=== PATIENT | male | born 1945 | race Caucasian/White ===

== ENCOUNTER 2019-09-16 09:26 | Outpatient (CLI) | payer MEDICARE, SELFPAY ==
[2019-09-16 10:18] LABS: Basophils Percent Auto 0.6 % (0.2-1.2); Eosinophils Absolute Auto 0.1 K/mm3 (0-0.3); Eosinophils Percent Auto 2.5 % (0-4.4); Hematocrit 40.6 % (42.0-52.0); Hemoglobin 13.6 g/dL (14.0-18.0); Immature Granulocyte Absolute 0.02 K/mm3 (0.00-0.031); Immature Granulocyte Percent A 0.4 % (0-0.5); Lymphocytes Absolute Auto 1.99 K/mm3 (0.9-3.2); Lymphocytes Percent Auto 38.2 % (18.3-44.2); Mean Corpuscular HGB Conc 33.5 g/dl (32-36); Mean Corpuscular Hemoglobin 31.6 pg (26-34); Mean Corpuscular Volume 94.4 fl (80-100); Mean Platelet Volume 9.7 fl (7.4-10.4); Monocytes Absolute Auto 0.3 K/mm3 (0.1-0.6); Monocytes Percent Auto 5.8 % (2.6-8.5); Neutrophils Absolute Auto 2.7 K/mm3 (1.3-6.7); Neutrophils Percent Auto 52.5 % (45.5-73.1); Platelet Count Result 180 k/mm3 (150-375); Red Cell Distribution Width 13.8 % (11.5-14.5); White Blood Count 5.2 K/mm3 (4.5-10.0)
[2019-09-16 10:26] LABS: Hemoglobin A1C 6.7 % (<5.7)
[2019-09-16 10:26] LABS: Add Urine Microscopic? YES; Appearance Urine Clear (Clear); Bacteria Urine Trace /hpf; Bilirubin Urine Negative (Negative); Blood Urine Negative (Negative); Color Urine Yellow (Yellow); Glucose Urine UA Negative (Negative); Ketones Urine Negative (Negative); Leukocyte Esterase Ur 1+ LEU/UL (NEGATIVE); Mucus Urine Rare /lpf; Nitrate Urine Negative (Negative); Protein Urine Negative (Negative); Specific Grav Ur 1.016 (1.001-1.035); Squamous Epithelial Cell Urine Occasional /hpf (Few); Urobilinogen Urine Negative mg/dL (<2.0)
[2019-09-16 10:41] LABS: Alanine Aminotransferase 19 U/L (4-50); Albumin Level 3.7 g/dL (3.5-5.1); Alkaline Phosphatase 60 U/L (38-126); Aspartate Amino Transferase 30 U/L (17-59); Bilirubin,Total 0.9 mg/dL (0.2-1.3); Blood Urea Nitrogen 14 mg/dL (9-20); Calcium 8.7 mg/dL (8.4-10.2); Carbon Dioxide 30 mmol/L (22-30); Chloride 99 mmol/L (98-107); Cholesterol 191 mg/dL (0-200); Estimated Glomerular Filt Rate > 60; Glucose 127 mg/dL (75-110); HDL Direct 35 mg/dL; Potassium 4.1 mmol/L (3.4-5.0); Sodium 137 mmol/L (137-145); Triglycerides 212 mg/dL (<150)
[2019-09-16 10:48] LABS: LDL Cholesterol Direct 126 mg/dL
[2019-09-16 10:53] LABS: Creatinine Urine 106.8 mg/dL
[2019-09-16 11:14] LABS: MALB Creatinine Ratio < 5.6 mg/g (0-30); Microalbumin Urine Random < 6.0 mg/L (0-16.7)
[2019-09-16 13:05] LABS: Free T4 Free Thyroxine 1.17 ng/mL (0.78-2.19); Vitamin D 25 Hydroxy 16.5 ng/mL
== END 2019-09-16 09:27 | disposition home or self-care (01) ==
PROVIDERS: PCP Family Medicine; Visit Provider Nurse Practitioner Family
DX: I50.42 Chronic combined systolic (congestive) and diastolic (congestive) heart failure (principal); E11.42 Type 2 diabetes mellitus with diabetic polyneuropathy; E78.2 Mixed hyperlipidemia; E55.9 Vitamin D deficiency, unspecified; R10.2 Pelvic and perineal pain
CPT/HCPCS: 36415; 80053; 80061; 81001; 82043; 82306; 83036; 84439; 84443; 84480; 85025; 87086; 87088

== ENCOUNTER 2019-12-25 11:37 | Outpatient (CLI) | payer MEDICARE, SELFPAY ==
--- NOTE | ~2019-12-25 | XR_ITS ---
XR thoracic spine 3V DATE: 12/25/2019 12:26 INDICATION: History of T12 fracture TECHNIQUE: AP, lateral, swimmer views COMPARISON: None FINDINGS: There is mild anterolisthesis at C3-4. There is minimal anterolisthesis at C4-5. Degenerative disc disease and uncovertebral joint spurring are noted in the cervical spine at C5-6, C 6-7. There is associated mild retrolisthesis at C5-6. There is diffuse idiopathic skeletal hyperostosis of the thoracic spine, particularly in the mid to l ower thoracic region. There is mild anterior wedging of T12 and L1, consistent with old mild anterior wedge compression fra cture deformities. Status post sternotomy/CABG. IMPRESSION: Extensive degenerative changes of the cervical spine Diffuse idiopathic skeletal hyperostosis of the thoracic spine Chronic mild anterior wedge compression fracture deformities of T12 and L1 Reviewed, dictated and finalized at location A.
--- NOTE | ~2019-12-25 | XR_ITS ---
XR lumbar spine 2-3V DATE: 12/25/2019 12:26 INDICATION: T12 fracture TECHNIQUE: AP, lateral, coned lateral lumbosacral views COMPARISON: None FINDINGS: Mild anterior wedge apparently chronic compression fracture deformities are present at T12- L1. There is diffuse idiopathic skeletal hyperostosis of the lower thoracic and upper lumbar spine. There is diffuse osteopenia. There is degenerative change at the apophyseal joints with associated grade 1 anterolisthesis at L4-5 . There is mild degenerative disc disease at the lumbar levels. There is moderately severe degenerative disease however L5-S1. The sacral iliac joints appear normal. There is extensive calcification of the abdominal aorta. IMPRESSION: Chronic mild anterior wedge compression fracture deformities of T12 and L1 Multilevel degenerative disc disease, most severe at L5-S1 Reviewed, dictated and finalized at location A.
== END 2019-12-25 11:38 | disposition home or self-care (01) ==
PROVIDERS: PCP Family Medicine; Visit Provider Family Medicine
DX: M54.5 Low back pain (principal); M51.37 Other intervertebral disc degeneration, lumbosacral region
CPT/HCPCS: 72072; 72100

== ENCOUNTER 2019-12-31 07:05 | Outpatient (CLI) | payer MEDICARE, SELFPAY ==
[2019-12-31 08:00] LABS: Blood Urea Nitrogen 9 mg/dL (9-20); Carbon Dioxide 33 mmol/L (22-30); Chloride 102 mmol/L (98-107); Estimated Glomerular Filt Rate > 60; Glucose 131 mg/dL (75-110); Potassium 4.3 mmol/L (3.4-5.0); Sodium 140 mmol/L (137-145)
== END 2019-12-31 07:06 | disposition home or self-care (01) ==
PROVIDERS: PCP Family Medicine; Visit Provider Internal Medicine Cardiovascular Disease
DX: I27.20 Pulmonary hypertension, unspecified (principal); E11.59 Type 2 diabetes mellitus with other circulatory complications; I10 Essential (primary) hypertension
CPT/HCPCS: 36415; 80048

== ENCOUNTER 2022-09-01 14:12 | Outpatient (CLI) | payer MEDICARE, SELFPAY ==
--- NOTE | ~2022-09-01 | MR_ITS ---
EXAMINATION: MR lumbar spine wo con DATE: 09/01/2022 15:39 INDICATION: Lumbar stenosis with neurogenic claudication TECHNIQUE: Magnetic resonance imaging (MRI) of the lumbar spine was performed without intravenous con trast. Sequences included sagittal T2-weighted FSE, sagittal T2-weighted FS FSE, sagittal T1-weighted FSE, and axial T2-weighted FSE. COMPARISON: Lumbar spine radiographs dated 12/25/2019 FINDINGS: Postoperative change of L4 laminectomy and left L5-S1 hemilaminotomy with residual edema and scattere d foci of susceptibility artifact in the soft tissues of the overlying postoperative bed. 1-2 mm retr olisthesis L1 on L2, L3 on L4 and L5 on S1. Chronic T12 and L1 compression fracture with 20% anterior vertebral body height loss. Large T1 and T2 hyperintense hemangioma at L1. Otherwise normal marrow s ignal. Moderate left-sided predominant disc height loss at L5-S1. Remaining disc heights are relative ly preserved. The conus medullaris terminates at L1. There is normal signal in the caudal spinal cord . Paravertebral soft tissues are unremarkable. The following disc levels are specifically discussed: T12-L1: The disc does not extend beyond the endplate margin. There is very left and moderate right fa cet joint osteoarthritis. There is no neural foraminal stenosis. There is no central canal stenosis. L1-L2: Disc is bulging. There is severe bilateral facet joint osteoarthritis. There is mild bilateral neural foraminal stenosis. There is mild central canal stenosis. L2-L3: Disc is mildly bulging. There is severe left and moderate to severe right facet joint osteoart hritis. There is mild right and mild to moderate left neural foraminal stenosis. There is mild centra l canal stenosis. L3-L4: Disc is bulging. There is moderate to severe bilateral facet joint osteoarthritis. There is mo derate bilateral neural foraminal stenosis. There is mild central canal stenosis. L4-L5: Disc is bulging. There is severe bilateral facet joint osteoarthritis. There is a small joint effusion on the left with fluid passing the medial capsule exerting mass effect upon the left posteri or margin of the thecal sac. 3 mm AP separation of the articular surfaces of the left facet joint sug gesting potential for up to 3 mm anterolisthesis at least at the left side of L4 on L5. There is mode rate bilateral neural foraminal stenosis. There is moderate central canal stenosis with narrowing of the left and right lateral recesses. L5-S1: Disc is bulging with annular fissure versus site of a prior partial discectomy at the left lat eral recess. There is moderate right and mild to moderate left facet joint osteoarthritis. There is m oderate left and mild to moderate right neural foraminal stenosis. There is mild left central canal s tenosis. IMPRESSION: 1. Postoperative change of prior L4 laminectomy and left L5 hemilaminotomy potentially with prior par tial L5-S1 discectomy. Correlate with surgical history. 2. Moderate lumbar spondylosis and chronic mild anterior wedging at T12 and L1. Reviewed, dictated and finalized at location A. HOUSE INSULATION WORKER IMPRESSION: 1. Postoperative change of prior L4 laminectomy and left L5 hemilaminotomy pote ntially with prior partial L5-S1 discectomy. Correlate with surgical history. 2. Moderate lumbar spondylosis and chronic mild anterior wedging at T12 and L1.
--- NOTE | ~2022-09-01 | XR_ITS ---
EXAMINATION: XR orbit foreign body DATE: 09/01/2022 15:05 INDICATION: Metal in left eye. TECHNIQUE: 4 views of the orbits were obtained. COMPARISON: None. FINDINGS: Bone alignment is normal. No fracture. The patient is edentulous. IMPRESSION: 1. No radiopaque foreign body. Reviewed, dictated and finalized at location A. LITATOR
== END 2022-09-01 14:13 | disposition home or self-care (01) ==
PROVIDERS: PCP Family Medicine Sports Medicine
DX: M48.062 Spinal stenosis, lumbar region with neurogenic claudication (principal); Z98.1 Arthrodesis status; M47.896 Other spondylosis, lumbar region
CPT/HCPCS: 70030; 72148

== ENCOUNTER 2022-12-11 13:57 | Outpatient (CLI) | payer MEDICARE, SELFPAY ==
--- NOTE | ~2022-12-11 | US_ITS ---
EXAMINATION: US art doppler w press LE BI DATE: 12/11/2022 15:48 INDICATION: Claudication. TECHNIQUE: Segmental pressures and plethysmographic and Doppler waveforms of the brachial and lower e xtremity arteries were obtained. COMPARISON: None. FINDINGS: Right and left brachial artery pressures of 158 mm Hg and 169 mm Hg, respectively, are concordant (no rmal difference <= 30 mmHg). The right thigh, lower leg, and ankle pressures could not be measured due to inability to cuff occlud e the arteries. The right ankle-brachial index (BRAD) could not be measured (normal >= 0.9-1.0). The r ight great toe-brachial index (TBI) is 0.40 (normal >= 0.65). Arterial Doppler waveforms are biphasic from common femoral artery to the ankle. The left thigh, lower leg, and ankle pressures could not be measured due to inability to cuff occlude the arteries. The left BRAD could not be measured. The left TBI is 0.38. Arterial Doppler waveforms a re biphasic from common femoral artery to the ankle. IMPRESSION: 1. Decreased TBIs and nondiagnostic ABIs, consistent with arterial occlusive disease. Reviewed, dictated and finalized at location A. IMPRESSION: 1. Decreased TBIs and nondiagnostic ABIs, consistent with arterial occlusive di sease.
== END 2022-12-11 13:58 | disposition home or self-care (01) ==
PROVIDERS: PCP Family Medicine Sports Medicine; Visit Provider Internal Medicine Cardiovascular Disease
DX: I73.9 Peripheral vascular disease, unspecified (principal)
CPT/HCPCS: 93923

== ENCOUNTER 2023-02-13 02:07 | Observation (INO) | payer MEDICARE, SELFPAY ==
[2023-02-13] VITALS (19 sets, daily range): BP systolic 122–181; BP diastolic 52–104; PULSE 48–77; RESP 15–20; TEMP 36.4–37.2; O2SAT 93–100; BMI 31.8
--- NOTE | 2023-02-13 | ECHO_ITS ---
Patient Info Name: Marciano Cifuentes Age: 78 years : 1945 Gender: Male Ht: 69 in Wt: 216 lbs BSA: 2.21 m2 HR: 55 bpm BP: 122 / 53 mmHg Heart Rhythm: Atrial Fibrillation Technical Quality: Poor Exam Date: 02/13/2023 1:21 PM Exam Location: [facility] Patient Status: Inpatient Admit Date: 02/13/2023 Staff Ordering Physician: Karen Lombardo MD Senior Nuclear Medicine Technologist: Adelina Rodarte RDCS Attending Provider: Ingris Del Real MD Exam Type: CA echo dop color flow w con Study Info Indications - chest pain Complete two-dimensional, color flow and Doppler transthoracic echocardiogram is performed with contrast to opacify the left ventricle and to improve the deliniation of the left ventricle endocardial borders. Contrast/Agitated Saline Contrast/Ag. Saline: Definity Amount: 3.00 ml Administered By: Adelina Rodarte RDCS Existing IV Access: Yes IV Access Condition: patent with no signs of infiltration Summary 1. Left ventricular chamber dimension is normal. 2. Left ventricular systolic function is normal, estimated at 65-70%. 3. There is mildly increased left ventricular wall thickness. 4. Right ventricular systolic function is normal. 5. Left atrial chamber dimension is moderately enlarged. 6. There is severe aortic valve calcification. 7. There is severe aortic valve stenosis with a peak velocity of 363.26 cm/s, mean gradient of 27 mmHg, and aortic valve area of 0.64 cm2. 8. There is trace mitral valve regurgitation. 9. There is mild tricuspid valve regurgitation. Left Ventricle Left ventricular chamber dimension is normal. Left ventricular systolic function is normal, estimated at 65-70%. There is mildly increased left ventricular wall thickness. The left ventricular diastolic function is abnormal. Right Ventricle Right ventricular chamber dimension is normal. Right ventricular systolic function is normal. Left Atria Left atrial chamber dimension is moderately enlarged. Right Atria Right atrial chamber dimension is normal. Atrial Septum Intact interatrial septum visualized by color flow imaging. Aortic Valve The aortic valve is probable trileaflet. There is severe aortic valve stenosis with a peak velocity of 363.26 cm/s, mean gradient of 27 mmHg, and aortic valve area of 0.64 cm2. There is no aortic valve regurgitation. There is severe aortic valve calcification. Pulmonic Valve The pulmonic valve is not well visualized. Mitral Valve The mitral valve has thickened leaflets. There is trace mitral valve regurgitation. The mitral valve annulus is moderately calcified. Tricuspid Valve There is mild tricuspid valve regurgitation. Pericardium/Pleural There is no pericardial effusion. Inferior Vena Cava Inferior vena cava is not well visualized. Aorta The aortic root size at the sinus of Valsalva is normal. Left Ventricular Outflow Tract Name Value Normal LVOT 2D LVOT Diameter 2.02 cm LVOT Doppler LVOT Peak Gradient 3 mmHg LVOT Mean Gradient 1 mmHg LVOT VTI 18.56 cm LVOT VTI/AV VTI Ratio 0.20 LVOT Stroke Vol
--- NOTE | ~2023-02-13 | XR_ITS ---
EXAMINATION: XR chest 2V DATE: 02/13/2023 02:45 INDICATION: Chest pain TECHNIQUE: Frontal and lateral views of the chest are obtained COMPARISON: 06/09/2019 FINDINGS: There are minimal airspace opacities of the lung bases. No pleural effusion or pneumothorax . The cardiomediastinal silhouette is normal. There is mild thoracic spondylosis. Median sternotomy w ires and mediastinal surgical clips are seen, likely from prior coronary artery bypass grafting. IMPRESSION: 1. Minimal bibasilar airspace opacities, consistent with atelectasis versus pneumonia. Reviewed, dictated and finalized at location A. IMPRESSION: 1. Minimal bibasilar airspace opacities, consistent with atelectasis versus pne umonia.
--- NOTE | 2023-02-13 02:14 | ECG_ITS ---
Measurements Intervals [place] Rate: 49 P: MD: 0 QRS: -33 QRSD: 102 T: -29 QT: 431 QTc: 390 Interpretive Statements ATRIAL FIBRILLATION WITH SLOW VENTRICULAR RESPONSE PATTERN CONSISTENT WITH PULMONARY DISEASE INFERIOR INFARCT, AGE INDETERMINATE BASELINE ARTIFACT- I, II, III, AVR, AVL, AVF ABNORMAL ECG NO PREVIOUS ECG AVAILABLE FOR COMPARISON Electronically Signed On 02-13-2023 7:13:59 CDT by Marco A Morillo D.O.
[2023-02-13 02:29] LABS: Basophils Percent Auto 0.5 % (0.2-1.2); Eosinophils Absolute Auto 0.1 K/mm3 (0-0.3); Eosinophils Percent Auto 2.1 % (0-4.4); Hematocrit 29.2 % (42.0-52.0); Hemoglobin 8.8 g/dL (14.0-18.0); Immature Granulocyte Absolute 0.01 K/mm3 (0.00-0.031); Immature Granulocyte Percent A 0.2 % (0-0.5); Lymphocytes Absolute Auto 1.68 K/mm3 (0.9-3.2); Lymphocytes Percent Auto 38.8 % (18.3-44.2); Mean Corpuscular HGB Conc 30.1 g/dl (32-36); Mean Corpuscular Hemoglobin 23.2 pg (26-34); Mean Corpuscular Volume 76.8 fl (80-100); Mean Platelet Volume 9.3 fl (7.4-10.4); Monocytes Absolute Auto 0.4 K/mm3 (0.1-0.6); Monocytes Percent Auto 9.9 % (2.6-8.5); Neutrophils Absolute Auto 2.1 K/mm3 (1.3-6.7); Neutrophils Percent Auto 48.5 % (45.5-73.1); Platelet Count Result 149 k/mm3 (150-375); Red Cell Distribution Width 17.3 % (11.5-14.5); White Blood Count 4.3 K/mm3 (4.5-10.0)
[2023-02-13 02:39] LABS: Alanine Aminotransferase 18 U/L (6-50); Albumin Level 3.3 g/dL (3.5-5.1); Alkaline Phosphatase 72 U/L (38-126); Anion Gap 6 mmol/L (8-16); Aspartate Amino Transferase 38 U/L (17-59); Bilirubin,Total 0.7 mg/dL (0.2-1.3); Blood Urea Nitrogen 17 mg/dL (9-20); Calcium 8.6 mg/dL (8.4-10.2); Carbon Dioxide 28 mmol/L (22-30); Chloride 104 mmol/L (98-107); Estimated CRCL calculation 104 ml/min; Estimated Glomerular Filt Rate > 60; Glucose 115 mg/dL (65-110); INR 1.3; Lipase 22 U/L (23-300); Potassium 4.2 mmol/L (3.4-5.0); Prothrombin Time 16.7 Seconds (11.1-14.7); Sodium 138 mmol/L (137-145)
[2023-02-13 02:40] LABS: Partial Thromboplastin Time 33.2 SECONDS (22.3-36.8)
[2023-02-13 02:56] LABS: Troponin I < 0.012 ng/mL (0.000-0.034)
--- NOTE | 2023-02-13 03:34 | ED.GENADULT ---
HPI - General Adult General Chief complaint: Chest Pain Stated complaint: CP took 5 nitro Time Seen by Provider: 02/13/23 02:53 History of Present Illness HPI narrative: This is a 78-year-old male with significant cardiac history presenting to ED with chest pain. The patient says that at 10:00 p.m. he started to feel pressure in the center of his chest that radiated to both arms. He took x5 doses of nitro over the next 2 hours with improvement in his symptoms. Patient then called EMS have them bring him to the hospital. While he was in the ambulance his chest pain had resolved. Patient says he has experienced pain like this before and it feels exactly like when he had a heart attack. Improved with nitro. No exacerbating symptoms. Patient denies nausea vomiting diaphoresis or exertional component. He has shortness of breath he says that is a chronic problem has recently been started on Lasix from his director of patient care. patient is currently chest pain-free. Hydrography Teacher is Dr. Stoner Related Data Home Medications Medication Instructions Recorded Confirmed multivitamin 1 cap PO DAILY 06/26/19 08/15/22 albuterol sulfate 90 mcg/actuation 2 inh inhalation Q4-6H PRN 08/15/22 08/15/22 aerosol inhaler (Ventolin HFA) shortness of breath or wheezing aspirin 81 mg capsule 81 mg PO DAILY 08/15/22 08/15/22 bumetanide 2 mg tablet 2 mg PO DAILY 08/15/22 08/15/22 cholecalciferol (vitamin D3) 1,250 1,250 mcg PO WEEKLY 08/15/22 08/15/22 mcg (50,000 unit) capsule isosorbide mononitrate 30 mg 15 mg PO DAILY 08/15/22 08/15/22 tablet,extended release 24 hr pantoprazole 40 mg tablet,delayed 40 mg PO DAILY 08/15/22 08/15/22 release (Protonix) potassium chloride 20 mEq 20 meq PO DAILY 08/15/22 08/15/22 tablet,extended release(part/cryst) (Klor-Con M) ranolazine 1,000 mg 1,000 mg PO Q12H 08/15/22 08/15/22 tablet,extended release,12 hr (Ranexa) rivaroxaban 20 mg tablet (Xarelto) 20 mg PO DAILY 08/15/22 08/15/22 tamsulosin 0.4 mg capsule 0.4 mg PO QHS 08/15/22 08/15/22 tizanidine 4 mg capsule 4 mg PO Q6H PRN 08/15/22 08/15/22 Allergies Allergy/AdvReac Type Severity Reaction Status Date / Time No Known Allergies Allergy Verified 08/15/22 10:56 [facility] Past Medical History Medical History Atrial fibrillation Blindness of left eye BPH NOS w/o ur obs/LUTS CAD (coronary artery disease) CHF (congestive heart failure) Chronic neck and back pain Chronic peripheral neuropathic pain COPD (chronic obstructive pulmonary disease) Deafness in right ear Diabetes GERD (gastroesophageal reflux disease) Hx of adenomatous colonic polyps Hypercholesterolemia Hypertension Obesity Sleep apnea Vitamin D deficiency Surgical History Surgical History History of angioplasty History of cervical spinal surgery (~05/2022) History of coronary artery stent placement 2005, 2010, 2015,2020 History of esophageal dilatation (~06/2019) History of quadruple bypass (~2000) History of right mastoidectomy (~1958) Hx of cardiac catheterization Hx of coronary artery bypass graft Hx of lumbosacral spine surgery (~2021) Family History Family History Mother Diabetes mellitus Family history of cardiovascular disease Father Asthma Sibling Cerebrovascular accident Breast cancer Social History Social History Smoking status: Never smoker Alcohol intake: former Drinks per week: 2 Alcohol use details: quit 40 years ago Substance use: never Lack of Transportation: YES Lack of Food: Sometimes True Current Housing: I Have Housing Concerned About Future Housing: No Difficulty Paying Gas/Electric Bills: No Difficulty Paying for Meds: No Currently Unemployed: No Education: Associate Degree Difficulty w/ Childcare or
[2023-02-13] MEDS: BUMETANIDE INJ 1 MG/4 ML VIAL IV PUSH (04:07)
--- NOTE | 2023-02-13 04:52 | PC.NURSE ---
This patient, Marciano Cifuentes, was admitted to IMU Room 201-01. Patient/family oriented to hospital policies and general routines including ID bracelet, bed and alarms, visiting hours, pain management, procedures, bathroom and other care routines, personal items, smoking policy, room service/diet, and visiting hours. Information on how to activate the Rapid Response Team has been discussed. Patient/Family are encouraged to report perceived risks to care and to ask questions if they do not understand what they are told or what they should do.
[2023-02-13 06:55] LABS: Troponin I 0.016 ng/mL (0.000-0.034)
[2023-02-13 09:40] LABS: Troponin I 0.015 ng/mL (0.000-0.034)
--- NOTE | 2023-02-13 11:07 | PM.CNCAR ---
Assessment and Plan Assessment and plan (1) Chest pain: Code(s): R07.9 - Chest pain, unspecified Status: Acute Assessment and Plan: Concerning for angina. He does have significant anemia also which is likely contributing to his symptoms. Will hold Xarelto for now both because of the anemia and in case he needs to go to the cardiac catheterization lab. Continue isosorbide (2) Atrial fibrillation: Code(s): I48.91 - Unspecified atrial fibrillation Status: Acute Assessment and Plan: Is currently bradycardic. Hold AV esther agents (3) CHF (congestive heart failure): Code(s): I50.9 - Heart failure, unspecified Status: Acute Assessment and Plan: Bumex has been restarted (4) CAD (coronary artery disease): Code(s): I25.10 - Atherosclerotic heart disease of [place] coronary artery without angina pectoris Status: Acute Assessment and Plan: Continue aspirin, statin, nitrates. Hold beta-giuliano because of significant bradycardia. Significantly anemic. Needs ischemic evaluation but his multitude of other issues going on including anemia, aortic stenosis, bradycardia. Will keep NPO for possible ischemic workup tomorrow (5) Hypertension: Code(s): I10 - Essential (primary) hypertension Status: Acute Assessment and Plan: Reasonably controlled at present (6) Anemia: Code(s): D64.9 - Anemia, unspecified Status: Acute Assessment and Plan: Significant. Will hold Xarelto (7) Nonrheumatic aortic (valve) stenosis: Code(s): I35.0 - Nonrheumatic aortic (valve) stenosis Status: Acute Assessment and Plan: Worsening. 2D echocardiogram with Doppler is ordered and will be reviewed. History of Present Illness History of Present Illness Consult date/time: 02/13/23 11:07 Requesting physician: Reynaldo Oneal MD Consult reason: chest pain Reason For Visit: chest pain Narrative: Reason for consultation: Chest pain Requesting provider: Dr. Oneal Date of service 02/13/2023 History patient is a 78-year-old male who has a significant cardiac history including CABG Julio [place]esar EKG ago. He has had other intervention including evaluation of [place] for redo CABG but this was not performed. He does have atrial fibrillation also and is on chronic anticoagulation. Had significant bleeding issues treated up in [place] a year ago. In 2020 had another myocardial infarction and also treated up in [place] at that time. He follows with Dr. Goyal and also has some aortic stenosis in was in the process of being referred to Dr. Mari for further evaluation. Last week he started developed minute chest pain. Yesterday our symptoms worsen to the point he started taking nitroglycerin. Chest pain felt like previous anginal symptoms. He had to take a total of 5 nitroglycerin yesterday decided come to the hospital for further evaluation. At 1 point his pain was quite severe radiating to shoulders and up into his jaw and associated shortness of breath. Currently pain free. Troponins negative. EKG shows no significant ST or T-wave abnormalities but does have atrial fibrillation with slow ventricular response. He has been found to have significant anemia at this point. Currently pain free. No recent syncope, presyncope, paroxysmal nocturnal dyspnea, orthopnea. Has had some worsening swelling since been taken off of his water pills a few months ago. Review of Systems Review of Systems: All systems reviewed & are unremarkable except as noted in HPI and below Constitutional: Constitutional: Denies body ache(s) Eyes: Eyes: Denies blurry vision ENT: Reports Normal hearing present Cardiovascular: Cardiovascular: Reports chest pain Respiratory: Respiratory: Denies hemoptysis Gastrointestinal: Gastrointestinal: Denies abdominal pain Genitourinary: Genitourinary: Denies hematuria Musculoskeletal: Musculoskeletal: Denies back pain
[2023-02-13] MEDS: ATORVASTATIN 40 MG TABLET 80 MG PO (12:36)
[2023-02-13] MEDS: POTASSIUM CHLORIDE 20 MEQ ER TABLET PO (12:37)
[2023-02-13] MEDS: MAGNESIUM OXIDE 400 MG TABLET PO ×2 (12:37→17:50)
[2023-02-13] MEDS: PANTOPRAZOLE 40 MG TABLET PO (12:37)
[2023-02-13] MEDS: ASPIRIN 81 MG CHEWABLE TABLET PO (12:37)
[2023-02-13] MEDS: RANOLAZINE 500 MG TAB.ER.12H 1000 MG PO ×2 (12:37→20:13)
[2023-02-13] MEDS: ISOSORBIDE MONONITRATE 60 MG TAB.ER.24H PO (12:37)
[2023-02-13] MEDS: MULTIVITAMINS THERAPEUTIC TAB (*BKC) 1 TABLET PO (12:37)
[2023-02-13] MEDS: PERFLUTREN LIPID MICROSPHERES 1.5 ML VIAL DILUTED TO 10 ML TOTAL VOLUME IV PUSH (14:00)
--- NOTE | 2023-02-13 14:39 | PM.IMHP ---
H&P: HPI History of Present Illness Date/Time: 02/13/23 14:39 Chief Complaint: Chest pain Narrative: History of Present Illness ED-HPI narrative: ? This is a 78-year-old male with significant cardiac history presenting to ED with chest pain.? The patient says that at 10:00 p.m. he started to feel pressure in the center of his chest that radiated to both arms.? He took x5 doses of nitro over the next 2 hours with improvement in his symptoms.? Patient then called EMS have them bring him to the hospital.? While he was in the ambulance his chest pain had resolved.? Patient says he has experienced pain like this before and it feels exactly like when he had a heart attack.? Improved with nitro.? No exacerbating symptoms.? Patient denies nausea vomiting diaphoresis or exertional component.? He has shortness of breath he says that is a chronic problem has recently been started on Lasix from his truck service manager. ? patient is currently chest pain-free. Patient with history of CABG 4 vessels in 2000 and later with clogged stents and CAD presented with C/O CP which was relieved by SL nitro 5x over 2 hours, patient's EKG does not show any acute changes however he does have A. Fib with slow verticular response, seen by truck service manager stopped BB and also suspect his CP is triggered by anemia, placed hold on Xarelto for anemia and possible cardiac cath tomorrow, will do anemia work up, patient does not have c/o of bleeding, will do stool hemoccult, and iron profile, will monitor and further recommendation to follow. Patient admitted as observation status Review of Systems Review of Systems: All systems reviewed & are unremarkable except as noted in HPI and below PMFSH Past Medical History Medical History (Updated 02/13/23 @ 11:13 by Jarek De MD) Atrial fibrillation Blindness of left eye BPH NOS w/o ur obs/LUTS CAD (coronary artery disease) CHF (congestive heart failure) Chronic neck and back pain Chronic peripheral neuropathic pain COPD (chronic obstructive pulmonary disease) Deafness in right ear Diabetes GERD (gastroesophageal reflux disease) Hx of adenomatous colonic polyps Hypercholesterolemia Hypertension Nonrheumatic aortic (valve) stenosis Obesity Sleep apnea Vitamin D deficiency Surgical History Surgical History History of angioplasty History of cervical spinal surgery (~05/2022) History of coronary artery stent placement 2005, 2010, 2015,2020 History of esophageal dilatation (~06/2019) History of quadruple bypass (~2000) History of right mastoidectomy (~1958) Hx of cardiac catheterization Hx of coronary artery bypass graft Hx of lumbosacral spine surgery (~2021) Family History Family History Mother Diabetes mellitus Cerebrovascular accident Father Asthma Sibling Breast cancer Cerebrovascular accident Social History Social History Smoking status: Never smoker Second hand tobacco smoke exposure: No Alcohol intake: never Drinks per week: 2 Alcohol use details: quit 40 years ago Substance use: never Lack of Transportation: No Lack of Food: Never True Current Housing: I Have Housing Concerned About Future Housing: No Difficulty Paying Gas/Electric Bills: No Difficulty Paying for Meds: No Currently Unemployed: No Education: Associate Degree Difficulty w/ Childcare or Family Care: No Living arrangements: with family Gender identity (if verbalized by the patient): Male Spiritual care concerns: No Meds Home Medications and Allergies Home Medications Medication Instructions Recorded Confirmed Type multivitamin 1 cap PO DAILY 06/26/19 02/13/23 History albuterol sulfate 90 mcg/actuation 2 inh inhalation Q4-6H PRN 08/15/22 02/13/23 History aerosol inhaler (Ventolin HFA) shortness of breath or wheezing
[2023-02-13 16:21] LABS: Iron 41 ug/dL (49-181)
[2023-02-13 16:28] LABS: Percent Iron Saturation 9 % (20-50)
[2023-02-13 17:26] LABS: Folic Acid 15.8 ng/mL (2.76->20)
[2023-02-13] MEDS: TAMSULOSIN HCL 0.4 MG CAPSULE PO (20:14)
[2023-02-13] MEDS: FLUTICASONE/SALMETEROL 45-21 MCG INHALER 1 PUFF 2 PUFF INHALATION (21:06)
[2023-02-13] MEDS: NITROGLYCERIN SL 0.4 MG TABLET SUBLINGUAL (21:30)
--- NOTE | 2023-02-13 21:30 | ECG_ITS ---
Measurements Intervals [place] Rate: 50 P: SC: 0 QRS: -35 QRSD: 93 T: -35 QT: 451 QTc: 412 Interpretive Statements ATRIAL FIBRILLATION WITH SLOW VENTRICULAR RESPONSE DELAYED PRECORDIAL R/S TRANSITION BORDERLINE ST-T WAVE ABNORMALITY- HIGH LATERAL LEADS ABNORMAL ECG INFERIOR INFARCT, AGE INDETERMINATE COMPARED TO ECG 02/13/2023 02:17:45 NO SIGNIFICANT CHANGES Electronically Signed On 02-14-2023 6:21:41 CDT by Marco A Morillo D.O.
[2023-02-14] VITALS (18 sets, daily range): BP systolic 94–131; BP diastolic 52–83; PULSE 40–58; RESP 18–22; TEMP 35.6–36.7; O2SAT 92–100
[2023-02-14 04:40] LABS: Magnesium 1.8 mg/dL (1.6-2.3)
[2023-02-14 04:45] LABS: Hematocrit 26.8 % (42.0-52.0); Immature Platelet Fraction Pct 4.4 % (0.9-11.2); Mean Corpuscular HGB Conc 29.9 g/dl (32-36); Mean Corpuscular Hemoglobin 23.1 pg (26-34); Mean Corpuscular Volume 77.2 fl (80-100); Platelet Count Result 147 k/mm3 (150-375); Red Blood Count 3.47 M/mm3 (4.6-6.20); Red Cell Distribution Width 17.2 % (11.5-14.5); White Blood Count 4.3 K/mm3 (4.5-10.0)
[2023-02-14 04:52] LABS: Anion Gap 2 mmol/L (8-16); Blood Urea Nitrogen 15 mg/dL (9-20); Calcium 8.3 mg/dL (8.4-10.2); Carbon Dioxide 31 mmol/L (22-30); Chloride 106 mmol/L (98-107); Estimated CRCL calculation 87 ml/min; Estimated Glomerular Filt Rate > 60; Glucose 105 mg/dL (65-110); Potassium 3.9 mmol/L (3.4-5.0); Sodium 139 mmol/L (137-145)
[2023-02-14] MEDS: ONDANSETRON INJ 4 MG/2 ML VIAL IV PUSH (08:49)
[2023-02-14] MEDS: ATORVASTATIN 40 MG TABLET 80 MG PO (10:43)
[2023-02-14] MEDS: MULTIVITAMINS THERAPEUTIC TAB (*BKC) 1 TABLET PO (10:43)
[2023-02-14] MEDS: POTASSIUM CHLORIDE 20 MEQ ER TABLET PO (10:44)
[2023-02-14] MEDS: PANTOPRAZOLE 40 MG TABLET PO (10:45)
[2023-02-14] MEDS: ASPIRIN 81 MG CHEWABLE TABLET PO (10:45)
[2023-02-14] MEDS: MAGNESIUM OXIDE 400 MG TABLET PO ×2 (10:45→16:33)
[2023-02-14] MEDS: ISOSORBIDE MONONITRATE 60 MG TAB.ER.24H PO (10:46)
[2023-02-14] MEDS: BUMETANIDE 1 MG TABLET 2 MG PO (10:46)
[2023-02-14] MEDS: RANOLAZINE 500 MG TAB.ER.12H 1000 MG PO ×2 (10:47→20:35)
--- NOTE | 2023-02-14 14:07 | WPDPN ---
Progress Note: A&P Assessment and Plan (1) Chest pain: Code(s): R07.9 - Chest pain, unspecified Status: Acute Assessment and Plan: ED-[facility] narrative: ? This is a 78-year-old male with significant cardiac history presenting to ED with chest pain.? The patient says that at 10:00 p.m. he started to feel pressure in the center of his chest that radiated to both arms.? He took x5 doses of nitro over the next 2 hours with improvement in his symptoms.? Patient then called EMS have them bring him to the hospital.? While he was in the ambulance his chest pain had resolved.? Patient says he has experienced pain like this before and it feels exactly like when he had a heart attack.? Improved with nitro.? No exacerbating symptoms.? Patient denies nausea vomiting diaphoresis or exertional component.? He has shortness of breath he says that is a chronic problem has recently been started on Lasix from his firebreak cutter. ? patient is currently chest pain-free. 02/14/2023 interval history: Patient with history of CABG 4 vessels in 2000 and later with clogged stents and CAD presented with C/O CP which was relieved by SL nitro 5x over 2 hours, patient's EKG does not show any acute changes however he does have A. Fib with slow verticular response, seen by firebreak cutter stopped BB and also suspect his CP is triggered by anemia, placed hold on Xarelto for anemia and also patient with CP his tropes are not elevated however with history of CAD with CABG, paient will cardiac cath to further evaluate, Xarelto on hold, will have cath on Sunday, will do anemia work up, patient does not have c/o of bleeding, will do stool hemoccult, and iron profile, will monitor and further recommendation to follow. (2) Atrial fibrillation: Code(s): I48.91 - Unspecified atrial fibrillation Status: Acute Assessment and Plan: Patient with history of atrial fibrillation now with slow ventricular response, seen by Cardiology beta-giuliano on hold and stopped Xarelto due to anemia (3) Diabetes: Code(s): E11.9 - Type 2 diabetes mellitus without complications Status: Acute Assessment and Plan: Will continue home regimen (4) Anemia: Code(s): D64.9 - Anemia, unspecified Status: Acute Assessment and Plan: Patient has no complaint of bleeding, will do the stool Hemoccult and iron profile Subjective Date/time seen: 02/14/23 14:07 Interval history: ? This is a 78-year-old male with significant cardiac history presenting to ED with chest pain.? The patient says that at 10:00 p.m. he started to feel pressure in the center of his chest that radiated to both arms.? He took x5 doses of nitro over the next 2 hours with improvement in his symptoms.? Patient then called EMS have them bring him to the hospital.? While he was in the ambulance his chest pain had resolved.? Patient says he has experienced pain like this before and it feels exactly like when he had a heart attack.? Improved with nitro.? No exacerbating symptoms.? Patient denies nausea vomiting diaphoresis or exertional component.? He has shortness of breath he says that is a chronic problem has recently been started on Lasix from his firebreak cutter. ? patient is currently chest pain-free. 02/14/2023 interval history: Patient with history of CABG 4 vessels in 2000 and later with clogged stents and CAD presented with C/O CP which was relieved by SL nitro 5x over 2 hours, patient's EKG does not show any acute changes however he does have A. Fib with slow verticular response, seen by firebreak cutter stopped BB and also suspect his CP is triggered by anemia, placed hold on Xarelto for anemia and also patient with CP his tropes are not elevated however with history of CAD with CABG, paient will cardiac cath to further evaluate, Xarelto on hold, will have cath on Sunday, will do anemia work up, patient does not have c/o of bleeding, will do stool hemoccult, and iron profile, will monitor and furt
--- NOTE | 2023-02-14 16:05 | PM.PNCARD ---
Progress Note: A&P Assessment and Plan (1) CAD (coronary artery disease): Qualifiers: Coronary Disease-Associated Artery/Lesion type: [place] artery [place] vs. transplanted heart: [place] heart Associated angina: with stable angina Qualified Code(s): I25.118 - Atherosclerotic heart disease of [place] coronary artery with other forms of angina pectoris Code(s): I25.10 - Atherosclerotic heart disease of [place] coronary artery without angina pectoris Status: Acute Assessment and Plan: Continue aspirin 81 mg daily, atorvastatin 80 mg bedtime, Imdur. Patient is not on beta-giuliano therapy secondary to history of bradycardia however he has slower ventricular response in AFib at this time. His troponins are negative serially which is surprising given the escalation in his symptoms initially suggestive of unstable angina although his symptoms are initially control with nitrate therapy. Patient is a complex CAD history with prior bypass, multiple previous stents with 3 stents in the right coronary artery 2020 but is not an operable candidate in the past. He has a TIRE REPAIR MECHANIC of the circumflex, proximal LAd and high grade LM stenosis and 3/4 of his bypass grafts are known to be occluded with exception of his TAVAREZ to LAD. There is little that can be done at this institution with regards to revascularization given his complexity, however, most likely explanation if related to worsening obstructive CAD and myocardial ischemia it is InStent restenoses in the RCA. Nonetheless, given present circumstances and the fact that he has not suffered an acute myocardial infarction patient would be best served with more conservative medical management at this time. If repeat angiography is to be considered this should not be performed at this institution unless absolutely necessary. Patient's anginal symptoms certainly could be caused by progressive CAD but also exacerbated due to worsening underlying anemia, severe aortic stenosis, and acute on chronic decompensated heart failure. Patient is very complicated in this regard. Furthermore, given anticipated workup for TAVR preoperative invasive angiography would be required nonetheless. I feel we best deferred if patient remains stable at this time in this new or acute/refractory anginal symptoms developed or evidence for acute infarction. I spent 39 minutes in the care of this patient at bedside including examination, discussion with the patient and family, chart review, medical decision-making, and documentation. (2) Nonrheumatic aortic (valve) stenosis: Code(s): I35.0 - Nonrheumatic aortic (valve) stenosis Status: Acute Assessment and Plan: Patient is severe aortic stenosis and was referred to my colleague Dr. Mari as an outpatient for TAVR consideration. Caution to avoid symptomatic hypotension. 2D echo personally reviewed peak velocity 3.6 mean gradient 26 mm Hg calculated aortic valve area 0.6 centimeters squared. As an outpatient recently TANYA 0.9 centimeters squared by echo. (3) Atrial fibrillation: Qualifiers: Atrial fibrillation type: longstanding persistent Qualified Code(s): I48.11 - Longstanding persistent atrial fibrillation Code(s): I48.91 - Unspecified atrial fibrillation Status: Acute Assessment and Plan: Longstanding, persistent is currently bradycardic despite being off AV esther blocking agents in the past due to bradycardia. (4) CHF (congestive heart failure): Qualifiers: Heart failure type: diastolic Heart failure chronicity: acute on chronic Qualified Code(s): I50.33 - Acute on chronic diastolic (congestive) heart failure Code(s): I50.9 - Heart failure, unspecified Status: Acute Assessment and Plan: Acute on chronic decompensated heart failure with preserved ejection fraction. Bumex was restarted as an outpatient yet patient had not yet begun due to unavailability from his pharmacy over the weekend.
[2023-02-14] MEDS: TAMSULOSIN HCL 0.4 MG CAPSULE PO (20:35)
[2023-02-14] MEDS: FLUTICASONE/SALMETEROL 45-21 MCG INHALER 1 PUFF 2 PUFF INHALATION (20:50)
[2023-02-14] MEDS: SENNA/DOCUSATE SODIUM TABLET 1 TAB PO (22:39)
[2023-02-15] VITALS (19 sets, daily range): BP systolic 110–142; BP diastolic 42–96; PULSE 48–60; RESP 16–22; TEMP 35.6–36.6; O2SAT 96–100
[2023-02-15] MEDS: ONDANSETRON INJ 4 MG/2 ML VIAL IV PUSH ×2 (01:16→09:49)
[2023-02-15 04:00] LABS: Hematocrit 29.6 % (42.0-52.0); Hemoglobin 8.8 g/dL (14.0-18.0); Mean Corpuscular HGB Conc 29.7 g/dl (32-36); Mean Corpuscular Hemoglobin 22.9 pg (26-34); Mean Corpuscular Volume 77.1 fl (80-100); Mean Platelet Volume 9.6 fl (7.4-10.4); Platelet Count Result 149 k/mm3 (150-375); Red Blood Count 3.84 M/mm3 (4.6-6.20); Red Cell Distribution Width 17.3 % (11.5-14.5); White Blood Count 6.6 K/mm3 (4.5-10.0)
[2023-02-15 04:17] LABS: Anion Gap 4 mmol/L (8-16); Blood Urea Nitrogen 19 mg/dL (9-20); Calcium 8.4 mg/dL (8.4-10.2); Carbon Dioxide 33 mmol/L (22-30); Chloride 100 mmol/L (98-107); Estimated CRCL calculation 76 ml/min; Estimated Glomerular Filt Rate > 60; Glucose 126 mg/dL (65-110); Magnesium 1.7 mg/dL (1.6-2.3); Potassium 3.8 mmol/L (3.4-5.0); Sodium 137 mmol/L (137-145)
[2023-02-15] MEDS: FLUTICASONE/SALMETEROL 45-21 MCG INHALER 1 PUFF 2 PUFF INHALATION ×2 (07:40→20:38)
[2023-02-15] MEDS: ASPIRIN 81 MG CHEWABLE TABLET PO (09:46)
[2023-02-15] MEDS: BUMETANIDE 1 MG TABLET 2 MG PO (09:46)
[2023-02-15] MEDS: PANTOPRAZOLE 40 MG TABLET PO (09:46)
[2023-02-15] MEDS: RANOLAZINE 500 MG TAB.ER.12H 1000 MG PO ×2 (09:46→21:00)
[2023-02-15] MEDS: ATORVASTATIN 40 MG TABLET 80 MG PO (09:46)
[2023-02-15] MEDS: MULTIVITAMINS THERAPEUTIC TAB (*BKC) 1 TABLET PO (09:47)
[2023-02-15] MEDS: ISOSORBIDE MONONITRATE 30 MG TAB.ER.24H 90 MG PO (09:47)
[2023-02-15] MEDS: MAGNESIUM OXIDE 400 MG TABLET PO ×2 (09:47→16:20)
[2023-02-15] MEDS: ERGOCALCIFEROL 50,000 UNITS CAPSULE 50000 UNITS PO (09:47)
[2023-02-15] MEDS: POTASSIUM CHLORIDE 20 MEQ ER TABLET PO (09:47)
--- NOTE | 2023-02-15 13:15 | PM.PNCARD ---
Progress Note: A&P Assessment and Plan (1) CAD (coronary artery disease): Qualifiers: Associated angina: with stable angina Coronary Disease-Associated Artery/Lesion type: [place] artery [place] vs. transplanted heart: [place] heart Qualified Code(s): I25.118 - Atherosclerotic heart disease of [place] coronary artery with other forms of angina pectoris Code(s): I25.10 - Atherosclerotic heart disease of [place] coronary artery without angina pectoris Status: Acute Assessment and Plan: Continue aspirin 81 mg daily, atorvastatin 80 mg bedtime, Imdur. Patient is not on beta-giuliano therapy secondary to history of bradycardia however he has slower ventricular response in AFib at this time. His troponins are negative serially which is surprising given the escalation in his symptoms initially suggestive of unstable angina although his symptoms are initially control with nitrate therapy. Patient is a complex CAD history with prior bypass, multiple previous stents with 3 stents in the right coronary artery 2020 but is not an operable candidate in the past. He has a TRANSMISSION OPERATOR of the circumflex, proximal LAD and high grade LM stenosis and 3/4 of his bypass grafts are known to be occluded with exception of his TAVAREZ to LAD. There is little that can be done at this institution with regards to revascularization given his complexity, however, most likely explanation if related to worsening obstructive CAD and myocardial ischemia it is InStent restenoses in the RCA. Nonetheless, given present circumstances and the fact that he has not suffered an acute myocardial infarction patient would be best served with more conservative medical management at this time. If repeat angiography is to be considered this should not be performed at this institution unless absolutely necessary. Patient's anginal symptoms certainly could be caused by progressive CAD but also exacerbated due to worsening underlying anemia, severe aortic stenosis, and acute on chronic decompensated heart failure. Improvement of chest pain with intensifying anti-anginal therapy. No plan for coronary angiogram at this time. Continue Imdur 90mg daily, ranolazine 1000mg b.i.d. Anticipate discharge tomorrow. (2) Nonrheumatic aortic (valve) stenosis: Code(s): I35.0 - Nonrheumatic aortic (valve) stenosis Status: Acute Assessment and Plan: Patient is severe aortic stenosis and was referred to my colleague Dr. Mari as an outpatient for TAVR consideration. Caution to avoid symptomatic hypotension. 2D echo personally reviewed peak velocity 3.6 mean gradient 26 mm Hg calculated aortic valve area 0.6 centimeters squared. As an outpatient recently TANYA 0.9 centimeters squared by echo. (3) Atrial fibrillation: Qualifiers: Atrial fibrillation type: longstanding persistent Qualified Code(s): I48.11 - Longstanding persistent atrial fibrillation Code(s): I48.91 - Unspecified atrial fibrillation Status: Acute Assessment and Plan: Longstanding, persistent is currently bradycardic despite being off AV esther blocking agents in the past due to bradycardia. (4) CHF (congestive heart failure): Qualifiers: Heart failure chronicity: acute on chronic Heart failure type: diastolic Qualified Code(s): I50.33 - Acute on chronic diastolic (congestive) heart failure Code(s): I50.9 - Heart failure, unspecified Status: Acute Assessment and Plan: Acute on chronic decompensated heart failure with preserved ejection fraction. Bumex was restarted as an outpatient yet patient had not yet begun due to unavailability from his pharmacy over the weekend. At this time, has been restarted on Bumex 2 mg daily he is improving clinically. Continue accurate input output, daily weight. EF preserved 60 65% (5) Anemia: Qualifiers: Anemia type: iron deficiency Iron deficiency anemia type: other iron deficiency Qualified Code(s): D50
[2023-02-15 14:23] LABS: IFOB Positive Control Positive; Immunochemical Fecal Occult Bl Negative (N)
--- NOTE | 2023-02-15 14:29 | WPDPN ---
Progress Note: A&P Assessment and Plan (1) Chest pain: Qualifiers: Chest pain type: chest pain due to myocardial ischemia Ischemic chest pain type: stable angina pectoris Qualified Code(s): I20.8 - Other forms of angina pectoris Code(s): R07.9 - Chest pain, unspecified Status: Acute Assessment and Plan: ED-[facility] narrative: ? This is a 78-year-old male with significant cardiac history presenting to ED with chest pain.? The patient says that at 10:00 p.m. he started to feel pressure in the center of his chest that radiated to both arms.? He took x5 doses of nitro over the next 2 hours with improvement in his symptoms.? Patient then called EMS have them bring him to the hospital.? While he was in the ambulance his chest pain had resolved.? Patient says he has experienced pain like this before and it feels exactly like when he had a heart attack.? Improved with nitro.? No exacerbating symptoms.? Patient denies nausea vomiting diaphoresis or exertional component.? He has shortness of breath he says that is a chronic problem has recently been started on Lasix from his talent sourcer. ? patient is currently chest pain-free. 02/15/2023 interval history: Patient with history of CABG 4 vessels in 2000 and later with clogged stents and CAD presented with C/O CP which was relieved by SL nitro 5x over 2 hours, patient's EKG does not show any acute changes however he does have A. Fib with slow verticular response, seen by talent sourcer stopped BB and also suspect his CP is triggered by anemia, placed hold on Xarelto for anemia and also patient with CP his tropes are not elevated however with history of CAD with CABG, paient will have cardiac cath to further evaluate, Xarelto on hold, will have cath on Sunday, anemia work up showed iron deficiency, will venofer 300mg x1, patient does not have c/o of bleeding, stool hemoccult is negative, and iron profile, will monitor and further recommendation to follow. (2) Atrial fibrillation: Qualifiers: Atrial fibrillation type: longstanding persistent Qualified Code(s): I48.11 - Longstanding persistent atrial fibrillation Code(s): I48.91 - Unspecified atrial fibrillation Status: Acute Assessment and Plan: Patient with history of atrial fibrillation now with slow ventricular response, seen by Cardiology beta-giuliano on hold and stopped Xarelto due to anemia (3) Diabetes: Code(s): E11.9 - Type 2 diabetes mellitus without complications Status: Acute Assessment and Plan: Will continue home regimen (4) Anemia: Qualifiers: Anemia type: iron deficiency Iron deficiency anemia type: other iron deficiency Qualified Code(s): D50.8 - Other iron deficiency anemias Code(s): D64.9 - Anemia, unspecified Status: Acute Assessment and Plan: Patient has no complaint of bleeding, will do the stool Hemoccult and iron profile Subjective Date/time seen: 02/15/23 14:29 Interval history: ED-[facility] narrative: ? This is a 78-year-old male with significant cardiac history presenting to ED with chest pain.? The patient says that at 10:00 p.m. he started to feel pressure in the center of his chest that radiated to both arms.? He took x5 doses of nitro over the next 2 hours with improvement in his symptoms.? Patient then called EMS have them bring him to the hospital.? While he was in the ambulance his chest pain had resolved.? Patient says he has experienced pain like this before and it feels exactly like when he had a heart attack.? Improved with nitro.? No exacerbating symptoms.? Patient denies nausea vomiting diaphoresis or exertional component.? He has shortness of breath he says that is a chronic problem has recently been started on Lasix from his talent sourcer. ? patient is currently chest pain-free. 02/15/2023 interval history: Patient with history of CABG 4 vessels in 2000 and later with clogged stents and CAD presented with C/O CP wh
[2023-02-15] MEDS: RIVAROXABAN 20 MG TABLET PO (16:19)
[2023-02-15] MEDS: polyethylene glycoL 3350 17 GM POWD.PACK PO (16:19)
[2023-02-15] MEDS: TAMSULOSIN HCL 0.4 MG CAPSULE PO (21:01)
[2023-02-16] VITALS (11 sets, daily range): BP systolic 106–131; BP diastolic 56–64; PULSE 49–62; RESP 16–22; TEMP 35.6–36.4; O2SAT 96–100
[2023-02-16 04:20] LABS: Hematocrit 31.3 % (42.0-52.0); Hemoglobin 9.1 g/dL (14.0-18.0); Mean Corpuscular HGB Conc 29.1 g/dl (32-36); Mean Corpuscular Hemoglobin 22.5 pg (26-34); Mean Corpuscular Volume 77.5 fl (80-100); Mean Platelet Volume 9.6 fl (7.4-10.4); Platelet Count Result 162 k/mm3 (150-375); Red Blood Count 4.04 M/mm3 (4.6-6.20); Red Cell Distribution Width 17.3 % (11.5-14.5); White Blood Count 4.9 K/mm3 (4.5-10.0)
[2023-02-16 04:37] LABS: Anion Gap 4 mmol/L (8-16); Blood Urea Nitrogen 19 mg/dL (9-20); Calcium 8.5 mg/dL (8.4-10.2); Carbon Dioxide 33 mmol/L (22-30); Chloride 98 mmol/L (98-107); Estimated CRCL calculation 69 ml/min; Estimated Glomerular Filt Rate > 60; Glucose 125 mg/dL (65-110); Magnesium 1.7 mg/dL (1.6-2.3); Potassium 3.7 mmol/L (3.4-5.0); Sodium 135 mmol/L (137-145)
[2023-02-16] MEDS: FLUTICASONE/SALMETEROL 45-21 MCG INHALER 1 PUFF 2 PUFF INHALATION (07:25)
[2023-02-16] MEDS: ATORVASTATIN 40 MG TABLET 80 MG PO (10:08)
[2023-02-16] MEDS: ASPIRIN 81 MG CHEWABLE TABLET PO (10:08)
[2023-02-16] MEDS: POTASSIUM CHLORIDE 20 MEQ ER TABLET PO (10:09)
[2023-02-16] MEDS: MAGNESIUM OXIDE 400 MG TABLET PO (10:09)
[2023-02-16] MEDS: MULTIVITAMINS THERAPEUTIC TAB (*BKC) 1 TABLET PO (10:09)
[2023-02-16] MEDS: PANTOPRAZOLE 40 MG TABLET PO (10:09)
[2023-02-16] MEDS: ISOSORBIDE MONONITRATE 30 MG TAB.ER.24H 90 MG PO (10:09)
[2023-02-16] MEDS: RANOLAZINE 500 MG TAB.ER.12H 1000 MG PO (10:10)
[2023-02-16] MEDS: polyethylene glycoL 3350 17 GM POWD.PACK PO (10:10)
--- NOTE | 2023-02-16 10:16 | PM.PNCARD ---
Progress Note: A&P Assessment and Plan (1) CAD (coronary artery disease): Qualifiers: Coronary Disease-Associated Artery/Lesion type: [place] artery [place] vs. transplanted heart: [place] heart Associated angina: with stable angina Qualified Code(s): I25.118 - Atherosclerotic heart disease of [place] coronary artery with other forms of angina pectoris Code(s): I25.10 - Atherosclerotic heart disease of [place] coronary artery without angina pectoris Status: Acute Assessment and Plan: Continue aspirin 81 mg daily, atorvastatin 80 mg bedtime, Imdur 90mg daily. Patient is not on beta-giuliano therapy secondary to history of bradycardia however he has slower ventricular response in AFib at this time. His troponins are negative serially which is surprising given the escalation in his symptoms initially suggestive of unstable angina although his symptoms are initially control with nitrate therapy. Patient is a complex CAD history with prior bypass, multiple previous stents with 3 stents in the right coronary artery 2020 but is not an operable candidate in the past. He has a STRAIGHTENING ROLL OPERATOR of the circumflex, proximal LAD and high grade LM stenosis and 3/4 of his bypass grafts are known to be occluded with exception of his TAVAREZ to LAD. There is little that can be done at this institution with regards to revascularization given his complexity, however, most likely explanation if related to worsening obstructive CAD and myocardial ischemia it is InStent restenoses in the RCA. Nonetheless, given present circumstances and the fact that he has not suffered an acute myocardial infarction patient would be best served with more conservative medical management at this time. If repeat angiography is to be considered this should not be performed at this institution unless absolutely necessary. Patient's anginal symptoms certainly could be caused by progressive CAD but also exacerbated due to worsening underlying anemia, severe aortic stenosis, and acute on chronic decompensated heart failure. Improvement of chest pain with intensifying anti-anginal therapy. No plan for coronary angiogram at this time. OK for discharge home today. Continue Imdur 90mg daily, ranolazine 1000mg b.i.d. (2) Nonrheumatic aortic (valve) stenosis: Code(s): I35.0 - Nonrheumatic aortic (valve) stenosis Status: Acute Assessment and Plan: Patient is severe aortic stenosis and was referred to my colleague Dr. Mari as an outpatient for TAVR consideration. Caution to avoid symptomatic hypotension. 2D echo personally reviewed peak velocity 3.6 mean gradient 26 mm Hg calculated aortic valve area 0.6 centimeters squared. As an outpatient recently TANYA 0.9 centimeters squared by echo. (3) Atrial fibrillation: Qualifiers: Atrial fibrillation type: longstanding persistent Qualified Code(s): I48.11 - Longstanding persistent atrial fibrillation Code(s): I48.91 - Unspecified atrial fibrillation Status: Acute Assessment and Plan: Longstanding, persistent is currently bradycardic despite being off AV esther blocking agents in the past due to bradycardia. (4) CHF (congestive heart failure): Qualifiers: Heart failure type: diastolic Heart failure chronicity: acute on chronic Qualified Code(s): I50.33 - Acute on chronic diastolic (congestive) heart failure Code(s): I50.9 - Heart failure, unspecified Status: Acute Assessment and Plan: Acute on chronic decompensated heart failure with preserved ejection fraction. Bumex was restarted as an outpatient yet patient had not yet begun due to unavailability from his pharmacy over the weekend. At this time, has been restarted on Bumex 2 mg daily he is improving clinically. Continue accurate input output, daily weight. EF preserved 60 65%. Continue Bumex 2mg p.o. daily. (5) Anemia: Qualifiers: Anemia type: iron deficiency Iron deficiency anemia type: oth
--- NOTE | 2023-02-16 12:06 | PM.DS ---
DS: Admitting Diagnosis Discharge Date 02/16/2023 Admitting Diagnosis Chest pain DS: Discharge Diagnosis Discharge Diagnosis (1) Chest pain: Qualifiers: Chest pain type: chest pain due to myocardial ischemia Ischemic chest pain type: stable angina pectoris Qualified Code(s): I20.8 - Other forms of angina pectoris Code(s): R07.9 - Chest pain, unspecified Status: Acute Assessment and Plan: ED-[facility] narrative: ? This is a 78-year-old male with significant cardiac history presenting to ED with chest pain.? The patient says that at 10:00 p.m. he started to feel pressure in the center of his chest that radiated to both arms.? He took x5 doses of nitro over the next 2 hours with improvement in his symptoms.? Patient then called EMS have them bring him to the hospital.? While he was in the ambulance his chest pain had resolved.? Patient says he has experienced pain like this before and it feels exactly like when he had a heart attack.? Improved with nitro.? No exacerbating symptoms.? Patient denies nausea vomiting diaphoresis or exertional component.? He has shortness of breath he says that is a chronic problem has recently been started on Lasix from his bi solutions architect. ? patient is currently chest pain-free. 02/15/2023 interval history: Patient with history of CABG 4 vessels in 2000 and later with clogged stents and CAD presented with C/O CP which was relieved by SL nitro 5x over 2 hours, patient's EKG does not show any acute changes however he does have A. Fib with slow verticular response, seen by bi solutions architect stopped BB and also suspect his CP is triggered by anemia, placed hold on Xarelto for anemia and also patient with CP his tropes are not elevated however with history of CAD with CABG, paient will have cardiac cath to further evaluate, Xarelto on hold, will have cath on Sunday, anemia work up showed iron deficiency, will venofer 300mg x1, patient does not have c/o of bleeding, stool hemoccult is negative, and iron profile, will monitor and further recommendation to follow. (2) Atrial fibrillation: Qualifiers: Atrial fibrillation type: longstanding persistent Qualified Code(s): I48.11 - Longstanding persistent atrial fibrillation Code(s): I48.91 - Unspecified atrial fibrillation Status: Acute Assessment and Plan: Patient with history of atrial fibrillation now with slow ventricular response, seen by Cardiology beta-giuliano on hold and stopped Xarelto due to anemia (3) Diabetes: Code(s): E11.9 - Type 2 diabetes mellitus without complications Status: Acute Assessment and Plan: Will continue home regimen (4) Anemia: Qualifiers: Anemia type: iron deficiency Iron deficiency anemia type: other iron deficiency Qualified Code(s): D50.8 - Other iron deficiency anemias Code(s): D64.9 - Anemia, unspecified Status: Acute Assessment and Plan: Patient has no complaint of bleeding, will do the stool Hemoccult and iron profile DS: Summary Hospital Course Reason for hospitalization: Chest pain Narrative: History of Present Illness ED-HPI narrative: ? This is a 78-year-old male with significant cardiac history presenting to ED with chest pain.? The patient says that at 10:00 p.m. he started to feel pressure in the center of his chest that radiated to both arms.? He took x5 doses of nitro over the next 2 hours with improvement in his symptoms.? Patient then called EMS have them bring him to the hospital.? While he was in the ambulance his chest pain had resolved.? Patient says he has experienced pain like this before and it feels exactly like when he had a heart attack.? Improved with nitro.? No exacerbating symptoms.? Patient denies nausea vomiting diaphoresis or exertional component.? He has shortness of breath he says that is a chronic problem has recently been started on Lasix from his bi solutions architect. ? patient is currently chest pain-free. P
== END 2023-02-16 13:37 | disposition home or self-care (01) ==
LOC: ANHED 04:08 → ANHIMU 06:18
PROVIDERS: Admitting Provider Internal Medicine; Emergency Provider Emergency Medicine; PCP Family Medicine Sports Medicine; Visit Provider Family Medicine
DX: I25.118 Atherosclerotic heart disease of native coronary artery with other forms of angina pectoris (principal); I08.2 Rheumatic disorders of both aortic and tricuspid valves; R06.02 Shortness of breath; I48.11 Longstanding persistent atrial fibrillation; I11.0 Hypertensive heart disease with heart failure; I50.33 Acute on chronic diastolic (congestive) heart failure; D50.8 Other iron deficiency anemias; I25.2 Old myocardial infarction; N40.0 Benign prostatic hyperplasia without lower urinary tract symptoms; Z95.5 Presence of coronary angioplasty implant and graft; Z95.1 Presence of aortocoronary bypass graft; G89.29 Other chronic pain; M54.2 Cervicalgia; E78.00 Pure hypercholesterolemia, unspecified; M54.9 Dorsalgia, unspecified; E66.9 Obesity, unspecified; R94.31 Abnormal electrocardiogram [ECG] [EKG]; E55.9 Vitamin D deficiency, unspecified; Z68.32 Body mass index [BMI] 32.0-32.9, adult; G47.30 Sleep apnea, unspecified; E11.42 Type 2 diabetes mellitus with diabetic polyneuropathy; J44.9 Chronic obstructive pulmonary disease, unspecified; K21.9 Gastro-esophageal reflux disease without esophagitis; Z79.51 Long term (current) use of inhaled steroids; Z79.82 Long term (current) use of aspirin; Z79.01 Long term (current) use of anticoagulants; Z79.899 Other long term (current) drug therapy; Z83.3 Family history of diabetes mellitus; Z82.49 Family history of ischemic heart disease and other diseases of the circulatory system
CPT/HCPCS: 36415; 71046; 80048; 80053; 82274; 82607; 82728; 82746; 83540; 83550; 83690; 83735; 84484; 85025; 85027; 85055; 85610; 85730; 93005; 94640; 96374; 96375; 96376; 99285; A9270; C8929; G0378; J1756; J2405; Q9957